=== PATIENT | female | born 1980 | race Caucasian/White ===

== ENCOUNTER 2017-11-23 21:52 | Inpatient (IN) | payer OTHER ==
[~2017-11-23] VITALS: Ht 167.6 cm; Wt 72.3 kg
[2017-11-23 22:30] VITALS: BP 132/72
[2017-11-23] MEDS ORDERED: PREN1COM10 PO (23:01)
[2017-11-24] MEDS ORDERED: OXYTOCIN 30U/ 0.9% NaCL 500ML 500 ML ONE ×2 (00:22→12:45)
[2017-11-24] MEDS ORDERED: OXYTOCIN 30U/ 0.9% NaCL 500ML 500 ML IV ONE (00:23)
[2017-11-24] MEDS ORDERED: MISOPROSTOL 200 MCG TABLET ONE (00:23)
[2017-11-24] MEDS: D5%-LACTATED RINGERS 1,000 ML IV SCH ×2 (00:23→08:23)
[2017-11-24] MEDS ORDERED: NEWBORN KIT ONE (00:24)
[2017-11-24] MEDS ORDERED: TERBUTALINE 1 MG/ML, 1ML IVPush PRN ×2 (00:30)
[2017-11-24] MEDS ORDERED: ONDANSETRON 2MG/ML, 2ML IVPush PRN ×2 (00:30→15:00)
[2017-11-24] MEDS ORDERED: TERBUTALINE 1 MG/ML, 1ML SQ PRN (00:30)
[2017-11-24] MEDS ORDERED: FENTANYL PF 100 MCG/2ML IVPush PRN (00:30)
[2017-11-24] MEDS ORDERED: CALCIUM CARBONATE 500 MG TAB.CHEW PO PRN (00:30)
[2017-11-24] MEDS ORDERED: FENTANYL PF 100 MCG/2ML IV PRN (00:30)
[2017-11-24] MEDS: LACTATED RINGERS 1,000 ML IV SCH ×4 (00:40→12:48)
[2017-11-24 01:10] LABS: BASOPHILS # (AUTO) 0.07 x10^3/uL (0-0.1); BASOPHILS % (AUTO) 0 % (0-1); EOSINOPHILS # (AUTO) 0.02 x10^3/uL (0-0.4); EOSINOPHILS % (AUTO) 0 % (1-7); LYMPHOCYTES % (AUTO) 10 % (22-44); MD NO; MEAN CORPUSCULAR HEMOGLOBIN 33.6 pg (27.0-34.8); MEAN CORPUSCULAR HGB CONC 33.9 g/dL (32.4-35.8); MEAN CORPUSCULAR VOLUME 99.3 fL (80-100); MONOCYTES # (AUTO) 0.85 x10^3/uL (0.2-0.8); MONOCYTES % (AUTO) 5 % (2-9); NEUTROPHILS # (AUTO) 13.93 x10^3/uL (1.8-6.8); NEUTROPHILS % (AUTO) 85 % (42-75); PLATELET COUNT 267 x10^3/uL (130-400); RED BLOOD COUNT 3.88 x10^6/uL (3.82-5.3); RED CELL DISTRIBUTION WIDTH 13.1 % (9.6-15.2)
[2017-11-24] MEDS ORDERED: FENTANYL/BUPIV./NS/PF 250 ML EPIDCONT ONE (01:54)
[2017-11-24] MEDS ORDERED: FENTANYL PF 100 MCG/2ML ONE (01:54)
[2017-11-24] MEDS ORDERED: BUPIVACAINE 0.25% ONE (01:54)
[2017-11-24] MEDS ORDERED: FENTANYL/BUPIV./NS/PF 250 ML EPIDCONT SCH (02:02)
[2017-11-24] MEDS ORDERED: LACTATED RINGERS 1,000 ML IVBOLUS PRN (02:30)
[2017-11-24] MEDS: OXYTOCIN 30U/ 0.9% NaCL 500ML 500 ML IV SCH ×2 (12:02→22:02)
[2017-11-24] MEDS ORDERED: MISOPROSTOL 200 MCG TABLET PR PRN (12:30)
[2017-11-24] MEDS ORDERED: IBUPROFEN 600 MG TABLET ONE (12:46)
[2017-11-24] MEDS: IBUPROFEN 600 MG TABLET PO PRN ×2 (12:47→19:25)
[2017-11-24] MEDS ORDERED: LACTATED RINGERS 1,000 ML IV SCH (14:40)
[2017-11-24] MEDS ORDERED: BUTORPHANOL 1 MG/ML, 1ML IVPush PRN ×2 (15:00)
[2017-11-24 15:45] VITALS: BP 117/72
[2017-11-24] MEDS: OXYcodone/APAP 5/325MG TABLET PO PRN ×2 (18:37→23:39)
[2017-11-24] MEDS: DOCUSATE 100 MG CAPSULE PO PRN (19:25)
[2017-11-24 20:35] VITALS: BP 115/64
[2017-11-24 20:40] LABS: BASOPHILS # (AUTO) 0.01 x10^3/uL (0-0.1); BASOPHILS % (AUTO) 0 % (0-1); EOSINOPHILS # (AUTO) 0.01 x10^3/uL (0-0.4); EOSINOPHILS % (AUTO) 0 % (1-7); LYMPHOCYTES # (AUTO) 1.38 x10^3/uL (1-3.4); LYMPHOCYTES % (AUTO) 9 % (22-44); MD NO; MEAN CORPUSCULAR HEMOGLOBIN 33.9 pg (27.0-34.8); MEAN CORPUSCULAR HGB CONC 33.9 g/dL (32.4-35.8); MEAN PLATELET VOLUME 8.8 fL (7.4-10.4); MONOCYTES # (AUTO) 0.85 x10^3/uL (0.2-0.8); MONOCYTES % (AUTO) 6 % (2-9); NEUTROPHILS % (AUTO) 86 % (42-75); PLATELET COUNT 234 x10^3/uL (130-400); RED BLOOD COUNT 3.48 x10^6/uL (3.82-5.3); RED CELL DISTRIBUTION WIDTH 13.3 % (9.6-15.2)
[2017-11-24 23:40] VITALS: BP 101/62
[2017-11-25] MEDS: IBUPROFEN 600 MG TABLET PO PRN ×3 (02:44→16:33)
[2017-11-25] MEDS: OXYcodone/APAP 5/325MG TABLET PO PRN ×5 (03:48→21:08)
[2017-11-25 03:49] VITALS: BP 105/66
[2017-11-25] MEDS: OXYTOCIN 30U/ 0.9% NaCL 500ML 500 ML IV SCH (07:22)
[2017-11-25 08:01] VITALS: BP 101/66
[2017-11-25] MEDS: PRENATAL VIT/IRON/FA 1 EACH TABLET PO SCH (09:04)
[2017-11-25] MEDS: DOCUSATE 100 MG CAPSULE PO PRN ×2 (09:04→21:08)
[2017-11-25 12:00] VITALS: BP 105/66
[2017-11-25] MEDS ORDERED: OXYcodone/APAP 5/325MG TABLET PO PRN (12:30)
[2017-11-25 21:00] VITALS: BP 107/66
[2017-11-26] MEDS: IBUPROFEN 600 MG TABLET PO PRN ×2 (00:10→07:52)
[2017-11-26 07:48] VITALS: BP 101/66
[2017-11-26] MEDS: PRENATAL VIT/IRON/FA 1 EACH TABLET PO SCH (07:52)
[2017-11-26] MEDS: DOCUSATE 100 MG CAPSULE PO PRN (07:52)
[2017-11-26] MEDS ORDERED: IBUP-1222 PO (09:41)
[2017-11-26] MEDS ORDERED: OXYC-302 PO (09:41)
== END 2017-11-26 11:25 | disposition home or self-care (01) | DRG 775 ==
LOC: LDOP 21:52 → LDIP 11-24 00:26 → 2NW 11-24 15:44
PROVIDERS: ADMIT Obstetrics & Gynecology; ATTEND Obstetrics & Gynecology
PROC: 10E0XZZ Delivery of Products of Conception, External Approach (ICD-10-PCS; principal; 2017-11-24)
PROC: 0W8NXZZ Division of Female Perineum, External Approach (ICD-10-PCS; 2017-11-24)
DX: O80 Encounter for full-term uncomplicated delivery (principal)
CPT/HCPCS: 36415; 85025; 86850; 86900; J3010; J3490; J2590; J7120

== ENCOUNTER 2019-04-10 11:11 | Inpatient (IN) | payer OTHER ==
[~2019-04-10] VITALS: Ht 167.6 cm; Wt 74.0 kg
[~2019-04-10 11:11] MED LIST: IBUP-1222 PO; OXYC-302 PO; PREN1COM10 PO
[2019-04-12] MEDS ORDERED: OXYTOCIN 30U/ 0.9% NaCL 500ML 500 ML IV ONE (05:11)
[2019-04-12] MEDS ORDERED: D5%-LACTATED RINGERS 1,000 ML IV SCH (05:11)
[2019-04-12] MEDS ORDERED: LACTATED RINGERS 1,000 ML IV SCH (05:11)
[2019-04-12] MEDS ORDERED: OXYTOCIN 30U/ 0.9% NaCL 500ML 500 ML IV PRN (05:11)
[2019-04-12] MEDS ORDERED: NEWBORN KIT ONE (05:14)
[2019-04-12] MEDS ORDERED: OXYTOCIN 30U/ 0.9% NaCL 500ML 500 ML ONE ×2 (05:14→14:38)
[2019-04-12] MEDS ORDERED: CALCIUM CARBONATE 500 MG TAB.CHEW PO PRN (05:30)
[2019-04-12] MEDS ORDERED: ONDANSETRON 2MG/ML, 2ML IVPush PRN ×2 (05:30→09:00)
[2019-04-12] MEDS ORDERED: FENTANYL PF 100 MCG/2ML IV PRN (05:30)
[2019-04-12] MEDS ORDERED: FENTANYL PF 100 MCG/2ML IVPush PRN (05:30)
[2019-04-12] MEDS ORDERED: TERBUTALINE 1 MG/ML, 1ML IVPush PRN (05:30)
[2019-04-12 06:28] LABS: BASOPHILS # (AUTO) 0.03 x10^3/uL (0-0.1); BASOPHILS % (AUTO) 0 % (0-1); EOSINOPHILS # (AUTO) 0.03 x10^3/uL (0-0.4); EOSINOPHILS % (AUTO) 0 % (1-7); LYMPHOCYTES # (AUTO) 1.93 x10^3/uL (1-3.4); LYMPHOCYTES % (AUTO) 22 % (22-44); MD NO; MEAN CORPUSCULAR HEMOGLOBIN 34.2 pg (27.0-34.8); MEAN CORPUSCULAR HGB CONC 33.8 g/dL (32.4-35.8); MEAN CORPUSCULAR VOLUME 101.2 fL (80-100); MONOCYTES # (AUTO) 0.54 x10^3/uL (0.2-0.8); MONOCYTES % (AUTO) 6 % (2-9); NEUTROPHILS # (AUTO) 6.07 x10^3/uL (1.8-6.8); NEUTROPHILS % (AUTO) 71 % (42-75); PLATELET COUNT 224 x10^3/uL (130-400); RED BLOOD COUNT 3.65 x10^6/uL (3.82-5.3); RED CELL DISTRIBUTION WIDTH 14.1 % (9.6-15.2)
[2019-04-12] MEDS ORDERED: FENTANYL/BUPIV./NS/PF 250 ML EPIDCONT SCH ×2 (07:23→08:44)
[2019-04-12] MEDS ORDERED: FENTANYL PF 500 MCG, BUPIVACAINE/PF 0.5%, 30ML 62.5 ML in SODIUM CHLORIDE 0.9% 177.5 ML EPIDCONT SCH (08:00)
[2019-04-12] MEDS ORDERED: LIDOCAINE/PF 1.5%-EPI 1:200K, 30ML ONE (08:19)
[2019-04-12] MEDS ORDERED: BUPIVACAINE 0.25% ONE (08:19)
[2019-04-12] MEDS ORDERED: DIPHENHYDRAMINE 50 MG/ML, 1ML IVPush PRN (09:00)
[2019-04-12] MEDS ORDERED: LACTATED RINGERS 1,000 ML IVBOLUS PRN (09:00)
[2019-04-12] MEDS ORDERED: NALOXONE 0.4 MG/ML, 1ML IVPush PRN (09:00)
[2019-04-12] MEDS ORDERED: EPHEDRINE 50 MG/ML, 1ML IVPush PRN (09:00)
[2019-04-12] MEDS ORDERED: MISOPROSTOL 200 MCG TABLET PR PRN (13:30)
[2019-04-12] MEDS ORDERED: ONDANSETRON 2MG/ML, 2ML IV PRN (13:30)
[2019-04-12] MEDS ORDERED: DOCUSATE 100 MG CAPSULE PO PRN (13:30)
[2019-04-12] MEDS ORDERED: ACETAMINOPHEN 325 MG TABLET PO PRN ×2 (13:30)
[2019-04-12] MEDS ORDERED: METHYLERGONOVINE 0.2 MG/ML IM PRN (13:30)
[2019-04-12] MEDS: OXYTOCIN 30U/ 0.9% NaCL 500ML 500 ML IV SCH ×2 (14:45→21:30)
[2019-04-12] MEDS: LACTATED RINGERS 1,000 ML IV SCH ×3 (14:46→21:30)
[2019-04-12] MEDS ORDERED: IBUPROFEN 600 MG TABLET ONE (14:59)
[2019-04-12 15:00] VITALS: BP 100/68
[2019-04-12] MEDS: IBUPROFEN 600 MG TABLET PO PRN ×2 (15:01→21:37)
[2019-04-12 20:00] VITALS: BP 118/71
[2019-04-12 21:17] LABS: BASOPHILS # (AUTO) 0.03 x10^3/uL (0-0.1); BASOPHILS % (AUTO) 0 % (0-1); EOSINOPHILS # (AUTO) 0.03 x10^3/uL (0-0.4); EOSINOPHILS % (AUTO) 0 % (1-7); LYMPHOCYTES # (AUTO) 1.78 x10^3/uL (1-3.4); LYMPHOCYTES % (AUTO) 15 % (22-44); MD NO; MEAN CORPUSCULAR HEMOGLOBIN 34.3 pg (27.0-34.8); MEAN CORPUSCULAR HGB CONC 33.9 g/dL (32.4-35.8); MEAN CORPUSCULAR VOLUME 101.1 fL (80-100); MEAN PLATELET VOLUME 8.9 fL (7.4-10.4); MONOCYTES # (AUTO) 0.54 x10^3/uL (0.2-0.8); MONOCYTES % (AUTO) 5 % (2-9); NEUTROPHILS # (AUTO) 9.44 x10^3/uL (1.8-6.8); NEUTROPHILS % (AUTO) 80 % (42-75); PLATELET COUNT 209 x10^3/uL (130-400); RED BLOOD COUNT 3.59 x10^6/uL (3.82-5.3)
[2019-04-12] MEDS ORDERED: OXYcodone/APAP 5/325MG TABLET PO PRN (21:30)
[2019-04-13 00:10] VITALS: BP 105/68
[2019-04-13] MEDS: IBUPROFEN 600 MG TABLET PO PRN ×2 (03:57→10:01)
[2019-04-13 04:44] VITALS: BP 101/24
[2019-04-13 07:00] VITALS: BP 101/58
[2019-04-13] MEDS: LACTATED RINGERS 1,000 ML IV SCH (08:44)
[2019-04-13] MEDS ORDERED: PRENATAL VIT/IRON/FA 1 EACH TABLET PO SCH (09:00)
[2019-04-13] MEDS: OXYTOCIN 30U/ 0.9% NaCL 500ML 500 ML IV SCH (09:28)
[2019-04-13] MEDS ORDERED: MAGNESIUM HYDROXIDE 8%, 30ML UDC ONE (11:21)
[2019-04-13] MEDS ORDERED: MAGNESIUM HYDROXIDE 8%, 30ML UDC PO PRN (11:30)
[2019-04-13] MEDS ORDERED: OXYcodone/APAP 5/325MG TABLET PO PRN (11:30)
== END 2019-04-13 13:29 | disposition home or self-care (01) | DRG 807 ==
LOC: LDIP 04-12 05:10 → 2NW 04-12 15:48
PROVIDERS: ADMIT Obstetrics & Gynecology; ATTEND Obstetrics & Gynecology
PROC: 0KQM0ZZ Repair Perineum Muscle, Open Approach (ICD-10-PCS; principal; 2019-04-12)
PROC: 10E0XZZ Delivery of Products of Conception, External Approach (ICD-10-PCS; 2019-04-12)
PROC: 3E033VJ Introduction of Other Hormone into Peripheral Vein, Percutaneous Approach (ICD-10-PCS; 2019-04-12)
PROC: 00HU33Z Insertion of Infusion Device into Spinal Canal, Percutaneous Approach (ICD-10-PCS; 2019-04-12)
DX: O48.0 Post-term pregnancy (principal); Z37.0 Single live birth; O69.81X0 Labor and delivery complicated by cord around neck, without compression, not applicable or unspecified; Z3A.40 40 weeks gestation of pregnancy; O70.1 Second degree perineal laceration during delivery
CPT/HCPCS: 36415; J3490; S0020; 82803; 85025; 86850; 86900; G0378; J3010; J2590; J7050; J7120

== ENCOUNTER 2021-03-25 11:49 | Emergency (ER) | payer OTHER ==
[~2021-03-25] VITALS: Ht 167.6 cm; Wt 57.0 kg
[~2021-03-25 11:49] MED LIST changes: -OXYC-302 PO; +OXYC1TAB14 PO
--- NOTE | 2021-03-25 12:15 | NUR ---
Diarrhea x6 days, BLOOD TINGED X 2 DAYS. ALSO WITH INTERMITTENT PALPITATIONS NO RESPITORY SXS, NO CARDIAC HX PLACED ON RESEARCH BIOLOGIST
[2021-03-25] MEDS ORDERED: SODIUM CHLORIDE 0.9% 1,000ML IVBOLUS ONE (12:30)
[2021-03-25] MEDS ORDERED: SODIUM CHLORIDE FLUSH 10ML SYR IVF ONE (12:30)
--- NOTE | 2021-03-25 12:35 | NUR ---
UP TO RESTROOM TO VOID/PROVIDE STOOL SAMPLE UA OBTAINED/SENT, UNABLE TO STOOL
[2021-03-25 12:52] LABS: BASOPHILS % (AUTO) 1 % (0-1); EOSINOPHILS % (AUTO) 1 % (1-7); LYMPHOCYTES % (AUTO) 32 % (22-44); MD NO; MEAN CORPUSCULAR HEMOGLOBIN 31.8 pg (27.0-34.8); MEAN CORPUSCULAR HGB CONC 34.2 g/dL (32.4-35.8); MEAN PLATELET VOLUME 9.1 fL (7.4-10.4); MONOCYTES % (AUTO) 5 % (2-9); NEUTROPHILS % (AUTO) 62 % (42-75); PLATELET COUNT 260 x10^3/uL (130-400); RED BLOOD COUNT 4.59 x10^6/uL (3.82-5.3); RED CELL DISTRIBUTION WIDTH 12.8 % (9.6-15.2)
[2021-03-25 12:57] LABS: MICROSCOPIC AUTO
[2021-03-25 13:00] LABS: ALANINE AMINOTRANSFERASE 19 U/L (12-78); ALBUMIN 4.3 g/dL (3.4-5.0); ANION GAP 5 mmol/L (5-15); CALCIUM 8.8 mg/dL (8.5-10.1); CHLORIDE 109 mmol/L (98-107); CREATININE 0.79 mg/dL (0.55-1.02)
[2021-03-25 13:05] LABS: ALKALINE PHOSPHATASE 58 U/L (45-117); BILIRUBIN,TOTAL 0.5 mg/dL (0.2-1.0); TOTAL PROTEIN 7.2 g/dL (6.4-8.2)
--- NOTE | 2021-03-25 13:32 | NUR ---
Ivf complete no change in symptoms (no palpiptations or periods of diarrhea) still unable to produce stool sample
[2021-03-25 14:35] VITALS: BP 118/71
== END 2021-03-25 14:37 | disposition home or self-care (01) ==
LOC: ED 13:31
DX: R19.7 Diarrhea, unspecified (principal); R10.32 Left lower quadrant pain
CPT/HCPCS: 36415; 74021; 80053; 81001; 83690; 84703; 85025; 87086; 96360; 99284; J7030